=== PATIENT | female | born 1970 | race Caucasian/White ===

== ENCOUNTER 2021-03-14 06:14 | Day surgery (SDC) | payer OTHER, SELFPAY ==
[~2021-03-14] VITALS: Ht 160 cm; Wt 54.4 kg
[2021-03-14] MEDS ORDERED: KETOROLAC TROMETHAMINE 30 MG VIAL IVP PRN ×3 (08:15)
[2021-03-14] MEDS ORDERED: ONDANSETRON HCL 4 MG/2 ML VIAL IVP PRN (08:15)
[2021-03-14] MEDS ORDERED: MIDAZOLAM HCL 5 MG/ML VIAL (VERSED) IV ONE (08:20)
[2021-03-14] MEDS ORDERED: NS 1000 ML IV.SOLN IV ONE (08:20)
[2021-03-14] MEDS ORDERED: PROPOFOL 200MG/ 20ML VIAL (DIPRIVAN) IV ONE (08:20)
[2021-03-14] MEDS ORDERED: KETOROLAC TROMETHAMINE 30 MG VIAL ONE (08:37)
[2021-03-14 11:17] VITALS: BP_SYST 110
== END 2021-03-14 10:15 | disposition home or self-care (01) ==
LOC: SDS 06:14 → SMU 06:15 → SDS 10:15
PROVIDERS: ATTEND Internal Medicine
DX: R19.4 Change in bowel habit (principal); R13.10 Dysphagia, unspecified; K63.5 Polyp of colon; K62.1 Rectal polyp; K44.9 Diaphragmatic hernia without obstruction or gangrene; K29.50 Unspecified chronic gastritis without bleeding; Z88.1 Allergy status to other antibiotic agents; Z79.899 Other long term (current) drug therapy; Z20.822 Contact with and (suspected) exposure to COVID-19
CPT/HCPCS: 36415; 43239; 43249; 45380; 45385; 87081; 88305; 88312; 88313; J1885; J2250; J2704; J7030; U0003